=== PATIENT | female | born 1995 | race African-American/Black ===

== ENCOUNTER 2024-07-09 16:48 | Emergency (ER) | payer OTHER ==
[2024-07-09 22:53] LABS: SARS-CoV-2 N1 Positive; SARS-CoV-2 N2 Positive; SARS-CoV-2 RNAse P1 Positive
== END 2024-07-09 19:42 | disposition home or self-care (01) ==
LOC: ERS 16:48
DX: U07.1 COVID-19 (principal); B34.9 Viral infection, unspecified; F17.210 Nicotine dependence, cigarettes, uncomplicated
CPT/HCPCS: 71045; 87635